=== PATIENT | female | born 1985 | race Caucasian/White ===

== ENCOUNTER 2017-03-10 21:23 | Emergency (ER) | payer BC, OTHER ==
[~2017-03-10] VITALS: Ht 160 cm; Wt 71.2 kg
[~2017-03-10 21:23] MED LIST: SERTRALINE HCL50 MG PO
[2017-03-10 21:39] LABS: URINE BILIRUBIN NEGATIVE (Negative); URINE BLOOD 3+ (Negative); URINE COLOR YELLOW; URINE GLUCOSE-RANDOM* NEGATIVE (Negative); URINE KETONES NEGATIVE (Negative); URINE NITRITE NEGATIVE (Negative); URINE PROTEIN (DIPSTICK) NEGATIVE (Negative)
[2017-03-10 21:54] LABS: CASTS None Seen /LPF (None Seen); SQUAMOUS 0-3 Few /LPF (0-3); URINE RBC 0-2 Rare /HPF (0-2); URINE WBC 0-5 Rare /HPF (0-5)
[2017-03-10 21:55] LABS: CRYSTALS None Seen /LPF (None Seen)
[2017-03-10 22:01] LABS: ABSOLUTE NEUTROPHILS 3.4 thou/uL (1.4-8.2); BASOPHILS 0.6 % (0.0-2.0); EOSINOPHILS 0.9 % (0.0-3.0); HEMATOCRIT 37.1 % (37.0-47.0); HEMOGLOBIN 12.7 gm/dL (12.0-15.0); LYMPHOCYTES 33.7 % (24.0-44.0); MCH 29.5 pg (26.0-34.0); MCHC 34.4 g/dL (28.0-37.0); MCV 85.9 fL (80.0-100.0); MONOCYTES 8.2 % (1.0-8.0); PLATELET COUNT 256 thou/uL (150-400); POLYS 56.6 % (36.0-66.0); RBC 4.31 mil/uL (4.20-5.00); RDW 12.1 % (10.5-14.5)
[2017-03-10 22:04] LABS: MANUAL DIFF NO
[2017-03-10 22:10] LABS: CREATININE 0.6 mg/dL (0.6-1.0); POTASSIUM 3.8 mmol/L (3.5-5.1)
[2017-03-10 22:16] LABS: ALBUMIN 3.3 g/dL (3.4-5.0); TOTAL BILIRUBIN 0.5 mg/dL (<0.1-1.0); TOTAL PROTEIN 6.3 g/dL (6.4-8.2)
[2017-03-10] MEDS ORDERED: LEVSIN0.125 MG PO (22:31)
[2017-03-10] MEDS ORDERED: ONDANSETRON HCL4 M2 PO (22:31)
[2017-03-10] MEDS ORDERED: KEFLEX500 MG PO (22:39)
[2017-03-10 22:42] VITALS: BP 124/81
== END 2017-03-10 22:46 | disposition home or self-care (01) ==
LOC: ER 21:23
PROVIDERS: Physician Assistant
DX: N39.0 Urinary tract infection, site not specified (principal); F41.9 Anxiety disorder, unspecified

== ENCOUNTER 2020-04-02 12:16 | Emergency (ER) | payer BC ==
[~2020-04-02] VITALS: Ht 160 cm; Wt 74.8 kg
[~2020-04-02 12:16] MED LIST changes: +KEFLEX500 MG PO; +LEVSIN0.125 MG PO; +ONDANSETRON HCL4 M2 PO
[2020-04-02 12:49] LABS: ABSOLUTE NEUTROPHILS 5.9 thou/uL (1.4-8.2); BASOPHILS 0.6 % (0.0-2.0); EOSINOPHILS 1.6 % (0.0-3.0); HEMATOCRIT 46.3 % (37.0-47.0); HEMOGLOBIN 16.3 gm/dL (12.0-15.0); LYMPHOCYTES 32.3 % (24.0-44.0); MCHC 35.1 g/dL (28.0-37.0); MCV 88.4 fL (80.0-100.0); MONOCYTES 6.7 % (1.0-8.0); PLATELET COUNT 381 thou/uL (150-400); POLYS 58.8 % (36.0-66.0); RBC 5.24 mil/uL (4.20-5.00); RDW 12.2 % (10.5-14.5)
[2020-04-02 13:00] LABS: ANION GAP 11 mmol/L (7-16); BUN 9 mg/dL (7-18); CALCIUM 8.9 mg/dL (8.5-10.1); CHLORIDE 100 mmol/L (98-107); CO2 24 mmol/L (21-32); CREATININE 1.1 mg/dL (0.6-1.0); GLUCOSE 133 mg/dL (74-106); POTASSIUM 3.8 mmol/L (3.5-5.1); SODIUM 135 mmol/L (136-145)
[2020-04-02 13:10] LABS: ALBUMIN 4.5 g/dL (3.4-5.0); SGOT 14 U/L (15-37); SGPT 23 U/L (30-65); TOTAL BILIRUBIN 1.1 mg/dL (<0.1-1.0); TOTAL PROTEIN 8.3 g/dL (6.4-8.2); TROPONIN-I <0.06 ng/mL (<0.06)
[2020-04-02] MEDS ORDERED: TOPROL XL25 MG PO (13:48)
[2020-04-02 14:28] VITALS: BP 123/87
--- NOTE | 2020-04-03 08:59 | EKG ---
[facility] [place] [address] ELECTROCARDIOGRAM REPORT Name: ISAIAS CARPENTER Room #: [facility]#: [id number] Admission: 04/02/20 Attend Phys: Discharge: 04/02/20 Date of : 85 Report #: [id number] THIS REPORT FOR: cc: FAM - Family physician unknown FAM - Family physician unknown Nii Pandey MD [facility] THIS REPORT FOR: //name// [facility] ED Test Date: 2020-04-02 Test Time: 12:27:22 Pat Name: ISAIAS CARPENTER Department: Room: Gender: F [employer] Consultant: radha : 1985 Requested By: Axel Hernandez Order Number: [id number] MD: Nii Pandey Measurements Intervals [place] Rate: 160 P: RI: QRS: 89 QRSD: 82 T: -25 QT: 267 QTc: 436 Interpretive Statements Supraventricular tachycardia Nonspecific repol abnormality, diffuse leads Compared to ECG 02/07/2017 08:47:07 Sinus tachycardia no longer present Electronically Signed On 04-03-2020 8:57:53 CDT by Nii Pandey [email or web address] <ELECTRONICALLY SIGNED> By: Nii Pandey MD, [facility] 04/03/20 0857 1227 1227 Nii Pandey MD, [facility] /EPI
--- NOTE | 2020-04-03 08:59 | EKG ---
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1985 Requested By: Axel Hernandez Order Number: [id number] MD: Nii Pandey Measurements Intervals [place] Rate: 122 P: 58 IN: 146 QRS: 75 QRSD: 83 T: -11 QT: 313 QTc: 446 Interpretive Statements Sinus tachycardia Borderline T abnormalities, inferior leads Compared to ECG 02/07/2017 08:47:07 Supraventricular tachycardia is no longer present Electronically Signed On 04-03-2020 8:58:12 CDT by Nii Pandey [email or web address] <ELECTRONICALLY SIGNED> By: Nii Pandey MD, [facility] 04/03/20 0858 1302 1302 Nii Pandey MD, [facility] /EPI
== END 2020-04-02 14:29 | disposition home or self-care (01) ==
LOC: ER 12:16
PROVIDERS: Physician Assistant
DX: I47.1 Supraventricular tachycardia (principal); R00.2 Palpitations; R42 Dizziness and giddiness; R25.1 Tremor, unspecified; F41.9 Anxiety disorder, unspecified; Z98.890 Other specified postprocedural states; Z79.899 Other long term (current) drug therapy; Z79.2 Long term (current) use of antibiotics